=== PATIENT | female | born 1940 | race African-American/Black ===

== ENCOUNTER 2023-11-01 18:53 | Inpatient (IN) | payer OTHER ==
[~2023-11-01] VITALS: Ht 170.2 cm; Wt 83.6 kg
[~2023-11-01 18:53] MED LIST: ACET-1182 PO; CEPH-588 PO; LOSA-272 PO; METF-346 PO; XALOS BOTH EYES
[2023-11-01 18:59] VITALS: BP 141/86; PULSE 68; RESP 13; TEMP 98; O2SAT 96
[2023-11-01 20:03] LABS: BASOPHILS # (AUTO) 0.1 K/uL (0.00-0.22); BASOPHILS % (AUTO) 1.3 % (0.0-2.0); EOSINOPHILS # (AUTO) 0.4 K/uL (0-0.4); EOSINOPHILS % (AUTO) 5.2 % (0.0-4.0); HEMATOCRIT 46.7 % (36-48); HEMOGLOBIN 15.4 g/dL (12.0-16.0); LYMPHOCYTES # (AUTO) 1.7 K/uL (2.5-16.5); LYMPHOCYTES % (AUTO) 24.2 % (20.5-51.1); MEAN CORPUSCULAR HEMOGLOBIN 32 pg (27-31); MEAN CORPUSCULAR HGB CONC 33 g/dL (33-37); MEAN CORPUSCULAR VOLUME 95.6 fL (80-94); MONOCYTES # (AUTO) 0.4 K/uL (0.8-1.0); MONOCYTES % (AUTO) 5.3 % (1.7-9.3); NEUTROPHILS # (AUTO) 4.5 K/uL (1.8-7.7); PLATELET COUNT (AUTO) 200 K/uL (140-450); RED BLOOD CELL COUNT(AUTO) 4.88 MIL/uL (4.20-5.40); RED CELL DISTRIBUTION WIDTH 14.6 % (11.6-13.7)
[2023-11-01 20:06] LABS: CALCIUM 8.9 mg/dL (8.5-10.1); CARBON DIOXIDE 32.8 mmol/L (21-32); CHLORIDE 103 mmol/L (98-107); CREATININE 0.7 mg/dL (0.6-1.3); GLUCOSE 126 mg/dL (74-106); POTASSIUM 4.8 mmol/L (3.5-5.1); SODIUM SERUM 140 mmol/L (136-145); UREA NITROGEN, BLOOD 11 mg/dL (7-18)
[2023-11-01 20:08] LABS: ALBUMIN 2.9 g/dL (3.4-5.0); BILIRUBIN,DIRECT 0.1 mg/dL (0.0-0.3); TOTAL BILIRUBIN 0.6 mg/dL (0.0-1.0); TOTAL PROTEIN, SERUM 6.7 g/dL (6.4-8.2)
[2023-11-01 21:09] LABS: APPEARANCE,URINE CLOUDY (CLEAR)
[2023-11-01 21:10] LABS: BILIRUBIN,URINE 1+ (NEGATIVE); BLOOD, URINE 2+ (NEGATIVE); COLOR,URINE YELLOW (YELLOW); PROTEIN,URINE TRACE (NEGATIVE); UGLUCOSE NEGATIVE (NEGATIVE)
[2023-11-01 21:11] LABS: LEUKOCYTE ESTERASE ,URINE 3+ (NEGATIVE); NITRITE, URINE POSITIVE (NEGATIVE)
[2023-11-01 21:12] LABS: BACTERIA,URINE 4+ /HPF (None Seen); WBC,URINE >25 (MANY) /HPF (0-5)
[2023-11-01 21:14] LABS: MUCUS,URINE 2+ /LPF (None Seen); SQUAMOUS EPITHELIAL CELL,UR 4-10 (MOD) /LPF (0-3 (FEW))
[2023-11-01 21:16] LABS: ICTOTEST NEGATIVE (NEGATIVE)
[2023-11-01] MEDS ORDERED: cefTRIAXone 1,000 MG VIAL ONE ×2 (21:28→21:41)
[2023-11-01] MEDS ORDERED: HYDROcodone/APAP 5/325 MG 1 TAB TAB PO PRN (21:40)
[2023-11-01] MEDS ORDERED: KCL 20 MEQ IN 100 mL PREMIX 200 ML IV PRN (21:40)
[2023-11-01] MEDS: NACL 0.9% 1,000 ML IV SCH (21:40)
[2023-11-01] MEDS ORDERED: POTASSIUM CHLORIDE 10 MEQ TABER PO PRN (21:40)
[2023-11-01] MEDS ORDERED: MAGNESIUM OXIDE 400 MG TAB PO PRN (21:40)
[2023-11-01] MEDS ORDERED: ONDANSETRON 4 MG/2 ML VIAL IVP PRN (21:40)
[2023-11-01] MEDS ORDERED: ACETAMINOPHEN 325 MG TAB PO PRN (21:40)
[2023-11-01] MEDS ORDERED: MORPHINE SULFATE 4 MG/ML SYR IVP PRN (21:40)
[2023-11-01] MEDS ORDERED: MAG SULF 2000 MG/WATER PREMIX 50 ML IV PRN (21:40)
[2023-11-01] MEDS ORDERED: LIDOCAINE MPF 1% 5 ML ONE (21:42)
[2023-11-01] MEDS: cefTRIAXone 1,000 MG in LIDOCAINE MPF 1% 2.1 ML IM ONE (21:49)
[2023-11-01 22:50] VITALS: PULSE 80; RESP 18; O2SAT 96
[2023-11-02] VITALS: BP 158/59; PULSE 60; RESP 18; TEMP 96.9; O2SAT 98
[2023-11-02 08:00] VITALS: BP 125/65; PULSE 65; RESP 16; TEMP 96.9; O2SAT 94
[2023-11-02] MEDS: DOCUSATE SODIUM 100 MG GELCAP PO SCH (09:00)
[2023-11-02 16:00] VITALS: BP 140/76; PULSE 65; RESP 18; TEMP 97.2; O2SAT 96
[2023-11-02 20:00] VITALS: BP 170/76; PULSE 71; RESP 18; TEMP 96.8; O2SAT 97
[2023-11-02] MEDS ORDERED: LATANOPROST 0.005% OP 2.5 ML BTL BOTH EYES SCH (21:00)
[2023-11-03] MEDS: LATANOPROST 0.005% OP 2.5 ML BTL BOTH EYES SCH (00:04)
[2023-11-03 08:00] VITALS: BP 137/51; PULSE 62; PULSE 67; RESP 18; TEMP 96.9; O2SAT 96
[2023-11-03] MEDS: LOSARTAN 50 MG TAB PO SCH (08:44)
[2023-11-03] MEDS: levoFLOXacin 500 MG TAB PO SCH (11:50)
[2023-11-03 19:21] LABS: RED CELL DISTRIBUTION WIDTH 14.4 % (11.6-13.7)
[2023-11-03 19:27] LABS: ALANINE AMINOTRANSFERASE 9 U/L (12-78); ALBUMIN 2.8 g/dL (3.4-5.0); ALKALINE PHOSPHATASE 70 U/L (50-136); ANION GAP 4.9 (8-16); ASPARTATE AMINOTRANSFERASE 13 U/L (15-37); CALCIUM 8.3 mg/dL (8.5-10.1); CARBON DIOXIDE 33.6 mmol/L (21-32); CHLORIDE 103 mmol/L (98-107); CREATININE 0.7 mg/dL (0.6-1.3); GLUCOSE 111 mg/dL (74-106); MAGNESIUM 1.8 mg/dL (1.8-2.4); POTASSIUM 3.5 mmol/L (3.5-5.1); SODIUM SERUM 138 mmol/L (136-145); TOTAL BILIRUBIN 0.6 mg/dL (0.0-1.0); TOTAL PROTEIN, SERUM 6.4 g/dL (6.4-8.2); UREA NITROGEN, BLOOD 9 mg/dL (7-18)
[2023-11-03 19:33] LABS: BASOPHILS # (AUTO) 0.1 K/uL (0.00-0.22); BASOPHILS % (AUTO) 1.6 % (0.0-2.0); EOSINOPHILS # (AUTO) 0.4 K/uL (0-0.4); EOSINOPHILS % (AUTO) 6.7 % (0.0-4.0); HEMATOCRIT 45.6 % (36-48); LYMPHOCYTES % (AUTO) 15.9 % (20.5-51.1); MEAN CORPUSCULAR HEMOGLOBIN 32 pg (27-31); MEAN CORPUSCULAR HGB CONC 33 g/dL (33-37); MEAN CORPUSCULAR VOLUME 95.9 fL (80-94); MONOCYTES # (AUTO) 0.4 K/uL (0.8-1.0); MONOCYTES % (AUTO) 6.6 % (1.7-9.3); NEUTROPHILS # (AUTO) 4.2 K/uL (1.8-7.7); NEUTROPHILS % (AUTO) 69.2 % (42.2-75.2); PLATELET COUNT (AUTO) 177 K/uL (140-450); RED BLOOD CELL COUNT(AUTO) 4.76 MIL/uL (4.20-5.40); WHITE BLOOD COUNT (AUTO) 6.1 K/uL (4.8-10.8)
[2023-11-04 08:00] VITALS: PULSE 65
[2023-11-04] MEDS ORDERED: LEVO-481 PO (11:07)
[2023-11-04 12:38] VITALS: BP 135/65; PULSE 65; RESP 18; TEMP 98.1
== END 2023-11-04 14:10 | DRG 690 ==
LOC: MED 18:53 → MTU 21:39
PROVIDERS: ADMIT Student in an Organized Health Care Education/Training Program; ATTEND Student in an Organized Health Care Education/Training Program
DX: N30.01 Acute cystitis with hematuria (principal); E44.1 Mild protein-calorie malnutrition; R64 Cachexia; I10 Essential (primary) hypertension; E11.9 Type 2 diabetes mellitus without complications; F03.90 Unspecified dementia, unspecified severity, without behavioral disturbance, psychotic disturbance, mood disturbance, and anxiety; Z68.28 Body mass index [BMI] 28.0-28.9, adult; E86.1 Hypovolemia
CPT/HCPCS: 36415; 80048; 80053; 80076; 81001; 83690; 83735; 85025; 87081; 87086; 87186; 97110; 97112; 97530; 99285; J0696; J1644; J2001; J7060